=== PATIENT | male | born 1990 | race Asian ===

== ENCOUNTER 2020-04-22 20:44 | Emergency (ER) | payer OTHER, SELFPAY ==
[~2020-04-22] VITALS: Ht 165.1 cm; Wt 77.1 kg
[2020-04-22 20:46] VITALS: Ht 165.1 cm; Wt 77.1 kg
[2020-04-22 23:25] VITALS: BP 106/76
== END 2020-04-22 23:25 | disposition home or self-care (01) ==
LOC: ED 20:44
DX: U07.1 COVID-19 (principal)
CPT/HCPCS: U0003